=== PATIENT | female | born 1960 | race Caucasian/White ===

== ENCOUNTER → 2016-12-26 | Outpatient (CLI) | payer MEDICARE | LOC: M SLEEP 19:28 | PROVIDERS: ATTEND Nurse Practitioner Adult Health | DX: G47.30 Sleep apnea, unspecified (principal) ==

== ENCOUNTER → 2017-01-15 | Outpatient (CLI) | payer MEDICARE ==
--- NOTE | 2017-01-29 07:19 | SLEEPCENT ---
DATE OF PROCEDURE: 01/15/2017 REFERRING PHYSICIAN: Estela Jacinto. INTERPRETATION: Nocturnal polysomnography was performed for the titration of pressure therapy in this patient with obstructive sleep apnea syndrome, apnea/hypopneic index of 20. For testing, the patient was fit with a ResMed Mirage FX nasal mask of standard size, 4 cm of water pressure were applied to the circuit and the lights were extinguished. 7 hours and 15 minutes of data were reviewed. There were 343 minutes of sleep identified. Sleep latency was mildly prolonged at 38 minutes. Rapid eye movement (REM) latency was normal at 96 minutes. Sleep architecture was fair with two REM periods appreciated. Overall sleep efficiency was 80.3%. EKG showed a sinus rhythm with an average heart rate of 60 beats per minute. EEG showed normal wave forms for awake and sleep. Respiratory events were best palliated with CPAP for pressure of +6. The remaining measures of sleep physiology were normal. IMPRESSION: Obstructive sleep apnea syndrome (G47.33). RECOMMENDATION: Nightly use of pressure therapy 6 cm of water.
== END ==
LOC: M SLEEP 19:50
PROVIDERS: ATTEND Nurse Practitioner Adult Health
DX: G47.33 Obstructive sleep apnea (adult) (pediatric) (principal)

== ENCOUNTER → 2017-02-08 | Outpatient (REF) | payer MEDICARE, MEDICAID | LOC: M SMT 13:15 | PROVIDERS: ATTEND Nurse Practitioner Women's Health | DX: R31.29 Other microscopic hematuria (principal) | CPT/HCPCS: 81001; 87086; 88108; G0463 ==

== ENCOUNTER → 2017-02-23 | Outpatient (REF) | payer MEDICARE | LOC: M SMT 13:08 | PROVIDERS: ATTEND Nurse Practitioner Women's Health | DX: R31.29 Other microscopic hematuria (principal) ==

== ENCOUNTER 2018-06-06 07:23 | Day surgery (SDC) | payer MEDICARE ==
[~2018-06-06 07:23] MED LIST: LIDOCAINE 2% INJ 100 MG/5 ML SDV (FOR ANES.) As Ordered; NS 1,000 ML IV; PROPOFOL 200 MG/20 ML VIAL As Ordered
[2018-06-06] MEDS ORDERED: PROPOFOL 200 MG/20 ML VIAL As Ordered (09:06)
== END 2018-06-06 09:41 | disposition home or self-care (01) ==
LOC: M OPP 07:23
DX: Z12.11 Encounter for screening for malignant neoplasm of colon (principal); K57.30 Diverticulosis of large intestine without perforation or abscess without bleeding; K64.8 Other hemorrhoids; R00.8 Other abnormalities of heart beat; I10 Essential (primary) hypertension; E78.5 Hyperlipidemia, unspecified; E11.9 Type 2 diabetes mellitus without complications; E03.9 Hypothyroidism, unspecified; K21.9 Gastro-esophageal reflux disease without esophagitis; R12 Heartburn; M19.90 Unspecified osteoarthritis, unspecified site; M54.89 Other dorsalgia; M81.0 Age-related osteoporosis without current pathological fracture; F41.9 Anxiety disorder, unspecified; G43.909 Migraine, unspecified, not intractable, without status migrainosus; I63.9 Cerebral infarction, unspecified; G47.30 Sleep apnea, unspecified; R06.83 Snoring; Z85.43 Personal history of malignant neoplasm of ovary; Z85.41 Personal history of malignant neoplasm of cervix uteri; Z98.1 Arthrodesis status; Z87.891 Personal history of nicotine dependence; Z88.8 Allergy status to other drugs, medicaments and biological substances; Z91.040 Latex allergy status; Z91.048 Other nonmedicinal substance allergy status; Z88.5 Allergy status to narcotic agent; Z79.82 Long term (current) use of aspirin; Z79.899 Other long term (current) drug therapy; Z79.84 Long term (current) use of oral hypoglycemic drugs; Z80.52 Family history of malignant neoplasm of bladder
CPT/HCPCS: G0121

== ENCOUNTER → 2023-09-10 | Outpatient (CLI) | payer MEDICARE, MEDICAID ==
[~2023-09-10] MED LIST changes: +ASPI81TA26 PO; +ATEN25TA PO; +ATEN50TA2; +BETA0.0543; +CRES5TAB PO; +D 1010004 PO; +DICL100G10 TOP; +FARX1TAB3; +INVO100T PO; +JANU100T14 PO; +LEVO75TA4; +LEVO88TA3 PO; +LEVOTAB10; -LIDOCAINE 2% INJ 100 MG/5 ML SDV (FOR ANES.) As Ordered; -NS 1,000 ML IV; +ONDA4TAB6; +ONETTES6; +PANT40TA29 PO; +PARO20TA3; -PROPOFOL 200 MG/20 ML VIAL As Ordered; +SEMA3TAB4; +TOPI100T9 PO; +TRAM50TA2 PO; +VALS1TAB66 PO; +VITA200015 PO; +[UNRECOGNIZED DRUG - CODE] IM
== END ==
LOC: M PLAIMG 10:20
PROVIDERS: ATTEND Nurse Practitioner Adult Health
DX: R04.2 Hemoptysis (principal); K44.9 Diaphragmatic hernia without obstruction or gangrene; K74.60 Unspecified cirrhosis of liver; R91.8 Other nonspecific abnormal finding of lung field; I86.4 Gastric varices

== ENCOUNTER → 2023-09-14 | Outpatient (REF) | payer MEDICARE ==
[2023-09-14 17:20] LABS: APPEARANCE, URINE HAZY (CLEAR); BACTERIA, URINE AUTO NEGATIVE (NEGATIVE); BILIRUBIN, URINE AUTO NEGATIVE (NEGATIVE); BLOOD, URINE BLOOD 1+ (NEGATIVE); CALCIUM OXALATE CRYSTALS SMALL; COLOR, URINE YELLOW (YELLOW); GLUCOSE, URINE (UA) AUTO 3+ mg/dL (NEGATIVE); KETONE, URINE AUTO NEGATIVE (NEGATIVE); LEUKOCYTE ESTERASE, URINE AUTO NEGATIVE (NEGATIVE); NITRITE, URINE AUTO NEGATIVE (NEGATIVE); PROTEIN, URINE AUTO NEGATIVE (NEGATIVE); RBC, URINE AUTO 0 /HPF (0-3); SPECIFIC GRAVITY URINE AUTO 1.016 (1.002-1.035); SQUAMOUS EPITHELIAL CELL UR AU 2 /HPF (0-6); UROBILINOGEN, URINE AUTO 0.2 mg/dL (0.0-2.0); WBC, URINE AUTO 0 /HPF (0-3)
[2023-09-14 17:43] LABS: C REACTIVE PROTEIN QUANTITATIV < 0.40 MG/DL (<1.0)
[2023-09-14 17:44] LABS: CREATININE,RANDOM URINE 34.8 MG/DL
[2023-09-14 17:45] LABS: COMPLEMENT C3 135.5 MG/DL (90.0-170.0)
[2023-09-14 17:54] LABS: TOTAL PROTEIN,RANDOM URINE < 6.0 MG/DL (0.0-14.0)
== END ==
LOC: M SFHCRHEU 15:10
PROVIDERS: ATTEND Internal Medicine
DX: R04.0 Epistaxis (principal); M25.50 Pain in unspecified joint; M25.40 Effusion, unspecified joint

== ENCOUNTER → 2023-09-19 | Outpatient (CLI) | payer MEDICARE, MEDICAID | LOC: M RAD 11:10 | PROVIDERS: ATTEND Internal Medicine | DX: M25.40 Effusion, unspecified joint (principal); M25.50 Pain in unspecified joint ==

== ENCOUNTER → 2023-11-14 | Outpatient (REF) | payer MEDICARE, MEDICAID ==
[2023-11-14 16:23] LABS: CREATININE, URINE 104.1 MG/DL; MAU/CREAT RATIO 3.8 MCG/MG (0.0-30.0)
== END ==
LOC: M LAB REF 15:07
PROVIDERS: ATTEND Nurse Practitioner Family
DX: E11.65 Type 2 diabetes mellitus with hyperglycemia (principal)

== ENCOUNTER → 2023-12-17 | Outpatient (CLI) | payer MEDICARE, MEDICAID | LOC: M PLAIMG 08:15 | PROVIDERS: ATTEND Nurse Practitioner Adult Health | DX: R91.8 Other nonspecific abnormal finding of lung field (principal) ==

== ENCOUNTER → 2024-03-06 | Outpatient (CLI) | payer MEDICARE, MEDICAID ==
[~2024-03-06] MED LIST changes: +ONDA-282; -ONDA4TAB6
[2024-03-06 13:01] LABS: BASO # 0.1 10^3/uL (0.0-0.2); BASO % 0.9 % (0.0-1.0); EOS # 0.2 10^3/uL (0.0-0.5); EOS % 3.2 % (0.0-3.0); HEMATOCRIT 39.4 % (36.0-47.0); HEMOGLOBIN 12.7 g/dl (12.0-15.5); LYMPH # 1.6 10^3/uL (1.5-5.0); LYMPH % 28.2 % (24.0-44.0); MEAN CORPUSCULAR HEMOGLOBIN 29.7 pg (27.0-33.0); MEAN CORPUSCULAR HGB CONC 32.2 g/dl (32.0-36.5); MEAN CORPUSCULAR VOLUME 92.1 fl (80.0-96.0); MONO # 0.5 10^3/uL (0.0-0.8); MONO % 8.9 % (2.0-8.0); NEUTROPHILS # 3.3 10^3/uL (1.5-8.5); NEUTROPHILS % 58.6 % (36.0-66.0); PLATELET COUNT, AUTOMATED 114 10^3/uL (150-450); RED BLOOD COUNT 4.28 10^6/uL (4.00-5.40); WHITE BLOOD COUNT 5.6 10^3/uL (4.0-10.0)
[2024-03-06 13:28] LABS: THYROID STIMULATING HORMONE 0.782 uIU/ML (0.55-4.78)
[2024-03-06 13:29] LABS: ALBUMIN 3.3 G/DL (3.2-5.2); ALKALINE PHOSPHATASE 90 U/L (46-116); ALT/SGPT 17 U/L (7.0-40); AST/SGOT 23 U/L (<34); BILIRUBIN,TOTAL 0.6 MG/DL (0.3-1.2); BLOOD UREA NITROGEN 11 MG/DL (9-23); CARBON DIOXIDE LEVEL 26 MMOL/L (20-31); CHLORIDE LEVEL 109 MMOL/L (98-107); CHOLESTEROL LEVEL 146 MG/DL (<200); CHOLESTEROL RISK RATIO 2.93 (<5); CREATININE FOR GFR 0.64 MG/DL (0.55-1.30); GLOMERULAR FILTRATION RATE > 60.0 (>45); GLUCOSE, FASTING 109 MG/DL (74-106); HDL CHOLESTEROL 49.8 MG/DL (>40); MALB URINE SIEMENS < 3.0 MG/L; MAU/CREAT RATIO 3.1 MCG/MG (0.0-30.0); NON-HDL-C 96.2 MG/DL; POTASSIUM SERUM 4.2 MMOL/L (3.5-5.1); SODIUM LEVEL 141 MMOL/L (136-145); TOTAL PROTEIN 7.2 G/DL (5.7-8.2); TRIGLYCERIDES LEVEL 86 MG/DL (<150)
== END ==
LOC: M WUC 10:27
PROVIDERS: ATTEND Family Medicine
DX: I10 Essential (primary) hypertension (principal); E78.5 Hyperlipidemia, unspecified; E03.9 Hypothyroidism, unspecified

== ENCOUNTER → 2024-08-21 | Outpatient (CLI) | payer MEDICARE, MEDICAID ==
[2024-08-21 19:21] LABS: BASO # 0.1 10^3/uL (0.0-0.2); BASO % 0.9 % (0.0-1.0); EOS # 0.4 10^3/uL (0.0-0.5); EOS % 6.3 % (0.0-3.0); LYMPH # 1.6 10^3/uL (1.5-5.0); LYMPH % 28.4 % (24.0-44.0); MEAN CORPUSCULAR HGB CONC 32.5 g/dl (32.0-36.5); MEAN CORPUSCULAR VOLUME 92.4 fl (80.0-96.0); MONO # 0.6 10^3/uL (0.0-0.8); MONO % 9.9 % (2.0-8.0); NEUTROPHILS # 3.1 10^3/uL (1.5-8.5); NEUTROPHILS % 54.3 % (36.0-66.0); PLATELET COUNT, AUTOMATED 123 10^3/uL (150-450); RED BLOOD COUNT 4.33 10^6/uL (4.00-5.40); WHITE BLOOD COUNT 5.7 10^3/uL (4.0-10.0)
[2024-08-21 19:29] LABS: ALBUMIN 3.4 G/DL (3.2-5.2); ALKALINE PHOSPHATASE 133 U/L (35-104); ALT/SGPT 20 U/L (7.0-40); AST/SGOT 33 U/L (<34); BILIRUBIN,TOTAL 0.4 MG/DL (0.3-1.2); BLOOD UREA NITROGEN 9 MG/DL (9-23); CALCIUM LEVEL 9.3 MG/DL (8.3-10.6); CARBON DIOXIDE LEVEL 27 MMOL/L (20-31); CHLORIDE LEVEL 108 MMOL/L (98-107); CHOLESTEROL LEVEL 162 MG/DL (<200); CHOLESTEROL RISK RATIO 2.55 (<5); CREATININE FOR GFR 0.58 MG/DL (0.55-1.30); GLOMERULAR FILTRATION RATE > 60.0 (>45); GLUCOSE, FASTING 138 MG/DL (74-106); HDL CHOLESTEROL 63.3 MG/DL (>40); LDL CHOLESTEROL 55.3 MG/DL (<100); NON-HDL-C 98.7 MG/DL; POTASSIUM SERUM 3.9 MMOL/L (3.5-5.1); SODIUM LEVEL 144 MMOL/L (136-145); TOTAL PROTEIN 7.7 G/DL (5.7-8.2); TRIGLYCERIDES LEVEL 217 MG/DL (<150)
[2024-08-21 19:43] LABS: HEMOGLOBIN A1c 7.2 % (4.0-6.0)
[2024-08-21 19:49] LABS: CREATININE, URINE 109.4 MG/DL; MALB URINE SIEMENS < 3.0 MG/L
== END ==
LOC: M WUC 14:55
PROVIDERS: ATTEND Family Medicine
DX: I10 Essential (primary) hypertension (principal); E78.5 Hyperlipidemia, unspecified; E03.9 Hypothyroidism, unspecified

== ENCOUNTER → 2025-01-02 | Outpatient (REF) | payer MEDICARE ==
[~2025-01-02] MED LIST changes: +TOPI-257 PO; -TOPI100T9 PO
[2025-01-02 15:36] LABS: ALBUMIN 3.4 G/DL (3.2-5.2); ALKALINE PHOSPHATASE 137 U/L (35-104); ALT/SGPT 21 U/L (7.0-40); AST/SGOT 31 U/L (<34); BILIRUBIN,DIRECT 0.2 MG/DL (<0.4); BILIRUBIN,TOTAL 0.4 MG/DL (0.3-1.2); BLOOD UREA NITROGEN 9 MG/DL (9-23); C REACTIVE PROTEIN QUANTITATIV 0.51 MG/DL (<1.0); CALCIUM LEVEL 9.2 MG/DL (8.3-10.6); CARBON DIOXIDE LEVEL 26 MMOL/L (20-31); CHLORIDE LEVEL 108 MMOL/L (98-107); COMPLEMENT C4 9.9 MG/DL (12-36); CPK CREATINE PHOSPHOKINASE 68 U/L (34-145); CREATININE FOR GFR 0.52 MG/DL (0.55-1.30); GLOMERULAR FILTRATION RATE > 90.0 (>45); GLUCOSE, FASTING 177 MG/DL (74-106); MAGNESIUM LEVEL 1.9 MG/DL (1.8-2.4); PHOSPHORUS LEVEL 2.6 MG/DL (2.4-5.1); POTASSIUM SERUM 4.2 MMOL/L (3.5-5.1); SODIUM LEVEL 144 MMOL/L (136-145); TOTAL PROTEIN 7.7 G/DL (5.7-8.2)
[2025-01-02 15:37] LABS: BASO # 0.1 10^3/uL (0.0-0.2); BASO % 1.6 % (0.0-1.0); EOS # 0.2 10^3/uL (0.0-0.5); EOS % 4.6 % (0.0-3.0); HEMATOCRIT 40.3 % (36.0-47.0); HEMOGLOBIN 12.6 g/dl (12.0-15.5); LYMPH # 1.3 10^3/uL (1.5-5.0); LYMPH % 28.5 % (24.0-44.0); MEAN CORPUSCULAR HEMOGLOBIN 28.7 pg (27.0-33.0); MEAN CORPUSCULAR HGB CONC 31.3 g/dl (32.0-36.5); MEAN CORPUSCULAR VOLUME 91.8 fl (80.0-96.0); MONO # 0.4 10^3/uL (0.0-0.8); MONO % 9.8 % (2.0-8.0); NEUTROPHILS # 2.4 10^3/uL (1.5-8.5); RED BLOOD COUNT 4.39 10^6/uL (4.00-5.40); WHITE BLOOD COUNT 4.4 10^3/uL (4.0-10.0)
[2025-01-02 15:38] LABS: TOTAL 25(OH) VITAMIN D 49.1 NG/ML (20.0-100.0)
[2025-01-02 15:43] LABS: ERYTHROCYTE SEDIMENTATION RATE 43 mm/hr (0-30)
[2025-01-02 15:56] LABS: PLATELET COUNT, AUTOMATED 96 10^3/uL (150-450)
[2025-01-02 16:43] LABS: AMORPHOUS SEDIMENT SMALL (NEGATIVE); APPEARANCE, URINE HAZY (CLEAR); BACTERIA, URINE AUTO NEGATIVE (NEGATIVE); BILIRUBIN, URINE AUTO NEGATIVE (NEGATIVE); BLOOD, URINE BLOOD NEGATIVE (NEGATIVE); COLOR, URINE YELLOW (YELLOW); GLUCOSE, URINE (UA) AUTO 3+ mg/dL (NEGATIVE); KETONE, URINE AUTO NEGATIVE (NEGATIVE); LEUKOCYTE ESTERASE, URINE AUTO NEGATIVE (NEGATIVE); NITRITE, URINE AUTO NEGATIVE (NEGATIVE); PROTEIN, URINE AUTO NEGATIVE (NEGATIVE); RBC, URINE AUTO 2 /HPF (0-3); SPECIFIC GRAVITY URINE AUTO 1.029 (1.002-1.035); SQUAMOUS EPITHELIAL CELL UR AU 2 /HPF (0-6); WBC, URINE AUTO 1 /HPF (0-3); YEAST LIKE CELL URINE AUTO SMALL
[2025-01-02 16:48] LABS: VITAMIN B12 LEVEL 382 PG/ML (211-911)
[2025-01-02 16:55] LABS: TOTAL PROTEIN,RANDOM URINE 8.4 MG/DL (0.0-14.0)
[2025-01-02 17:00] LABS: CREATININE,RANDOM URINE 35.6 MG/DL
[2025-01-06 18:37] LABS: COMPLEMENT TOTAL (CH50) 55 U/mL (31-60)
== END ==
LOC: M SFHCRHEU 10:37
PROVIDERS: ATTEND Internal Medicine
DX: M06.4 Inflammatory polyarthropathy (principal); M79.10 Myalgia, unspecified site

== ENCOUNTER → 2025-03-05 | Outpatient (REF) | payer MEDICARE, MEDICAID ==
[2025-03-05 18:01] LABS: APPEARANCE, URINE CLOUDY (CLEAR); BACTERIA, URINE AUTO 1+ (NEGATIVE); BILIRUBIN, URINE AUTO NEGATIVE (NEGATIVE); BLOOD, URINE BLOOD NEGATIVE (NEGATIVE); CALCIUM OXALATE CRYSTALS LARGE; GLUCOSE, URINE (UA) AUTO 3+ mg/dL (NEGATIVE); KETONE, URINE AUTO NEGATIVE (NEGATIVE); LEUKOCYTE ESTERASE, URINE AUTO NEGATIVE (NEGATIVE); MUCUS, URINE SMALL (NEGATIVE); NITRITE, URINE AUTO NEGATIVE (NEGATIVE); PROTEIN, URINE AUTO NEGATIVE (NEGATIVE); RBC, URINE AUTO 0 /HPF (0-3); SPECIFIC GRAVITY URINE AUTO 1.015 (1.002-1.035); SQUAMOUS EPITHELIAL CELL UR AU 24 /HPF (0-6); UROBILINOGEN, URINE AUTO 4.0 mg/dL (0.0-2.0); WBC, URINE AUTO 3 /HPF (0-3); YEAST LIKE CELL URINE AUTO SMALL
== END ==
LOC: M SMT 16:48
PROVIDERS: ATTEND Nurse Practitioner Family
DX: R31.9 Hematuria, unspecified (principal)

== ENCOUNTER → 2025-03-16 | Outpatient (REF) | payer MEDICARE, MEDICAID | LOC: M SFHCWAGY 10:03 | PROVIDERS: ATTEND Nurse Practitioner Family | DX: Z12.72 Encounter for screening for malignant neoplasm of vagina (principal); Z11.51 Encounter for screening for human papillomavirus (HPV) | CPT/HCPCS: 87624; G0123 ==

== ENCOUNTER → 2025-03-16 | Outpatient (CLI) | payer MEDICARE, MEDICAID | LOC: M WHC 08:04 | PROVIDERS: ATTEND Nurse Practitioner Family | DX: Z12.31 Encounter for screening mammogram for malignant neoplasm of breast (principal); R92.313 Mammographic fatty tissue density, bilateral breasts ==

== ENCOUNTER → 2025-04-17 | Outpatient (REF) | payer MEDICARE, MEDICAID ==
[2025-04-17 13:30] LABS: APPEARANCE, URINE CLOUDY (CLEAR); BACTERIA, URINE AUTO 1+ (NEGATIVE); BILIRUBIN, URINE AUTO NEGATIVE (NEGATIVE); BLOOD, URINE BLOOD 1+ (NEGATIVE); CALCIUM OXALATE CRYSTALS LARGE; GLUCOSE, URINE (UA) AUTO 3+ mg/dL (NEGATIVE); KETONE, URINE AUTO NEGATIVE (NEGATIVE); LEUKOCYTE ESTERASE, URINE AUTO 3+ (NEGATIVE); MUCUS, URINE SMALL (NEGATIVE); NITRITE, URINE AUTO NEGATIVE (NEGATIVE); PROTEIN, URINE AUTO NEGATIVE (NEGATIVE); RBC, URINE AUTO 29 /HPF (0-3); SPECIFIC GRAVITY URINE AUTO 1.028 (1.002-1.035); SQUAMOUS EPITHELIAL CELL UR AU 17 /HPF (0-6); UROBILINOGEN, URINE AUTO 4.0 mg/dL (0.0-2.0); WBC, URINE AUTO TNTC /HPF (0-3)
== END ==
LOC: M SMT 12:58
PROVIDERS: ATTEND Nurse Practitioner Family
DX: R30.0 Dysuria (principal)

== ENCOUNTER → 2025-06-18 | Outpatient (CLI) | payer MEDICARE, MEDICAID ==
[2025-06-18 12:53] LABS: BASO # 0.1 10^3/uL (0.0-0.2); BASO % 1.9 % (0.0-1.0); EOS # 0.3 10^3/uL (0.0-0.5); EOS % 5.5 % (0.0-3.0); LYMPH # 1.4 10^3/uL (1.5-5.0); LYMPH % 28.9 % (24.0-44.0); MONO # 0.5 10^3/uL (0.0-0.8); MONO % 11.3 % (2.0-8.0); NEUTROPHILS # 2.5 10^3/uL (1.5-8.5); NEUTROPHILS % 52.2 % (36.0-66.0); PLATELET COUNT, AUTOMATED 122 10^3/uL (150-450)
[2025-06-18 12:54] LABS: APPEARANCE, URINE CLOUDY (CLEAR); BACTERIA, URINE AUTO 2+ (NEGATIVE); BILIRUBIN, URINE AUTO NEGATIVE (NEGATIVE); BLOOD, URINE BLOOD NEGATIVE (NEGATIVE); GLUCOSE, URINE (UA) AUTO 3+ mg/dL (NEGATIVE); KETONE, URINE AUTO NEGATIVE (NEGATIVE); LEUKOCYTE ESTERASE, URINE AUTO NEGATIVE (NEGATIVE); NITRITE, URINE AUTO NEGATIVE (NEGATIVE); PROTEIN, URINE AUTO NEGATIVE (NEGATIVE); RBC, URINE AUTO 2 /HPF (0-3); SPECIFIC GRAVITY URINE AUTO 1.016 (1.002-1.035); SQUAMOUS EPITHELIAL CELL UR AU 32 /HPF (0-6); UROBILINOGEN, URINE AUTO 4.0 mg/dL (0.0-2.0); WBC, URINE AUTO 1 /HPF (0-3); YEAST LIKE CELL URINE AUTO MODERATE
[2025-06-18 13:18] LABS: ALT/SGPT 18 U/L (7.0-40); AST/SGOT 32 U/L (<34); CALCIUM LEVEL 9.2 MG/DL (8.3-10.6); CARBON DIOXIDE LEVEL 25 MMOL/L (20-31); CHLORIDE LEVEL 108 MMOL/L (98-107); CHOLESTEROL LEVEL 157 MG/DL (<200); CHOLESTEROL RISK RATIO 2.79 (<5); CREATININE FOR GFR 0.73 MG/DL (0.55-1.30); GLOMERULAR FILTRATION RATE > 90.0 (>45); LDL CHOLESTEROL 82.4 MG/DL (<100); NON-HDL-C 100.8 MG/DL; POTASSIUM SERUM 4.1 MMOL/L (3.5-5.1); SODIUM LEVEL 142 MMOL/L (136-145); TRIGLYCERIDES LEVEL 92 MG/DL (<150)
[2025-06-18 14:10] LABS: ESTIMATED AVERAGE GLUCOSE 171.0 MG/DL (60-110)
== END ==
LOC: M WUC 09:32
PROVIDERS: ATTEND Family Medicine
DX: I10 Essential (primary) hypertension (principal); E78.5 Hyperlipidemia, unspecified; E11.9 Type 2 diabetes mellitus without complications